=== PATIENT | male | born 1965 | race Caucasian/White ===

== ENCOUNTER → 2020-11-02 16:59 | Outpatient (BNVA) | payer OTHER, SELFPAY | PROVIDERS: Family Provider Emergency Medicine Emergency Medical Services; PCP Emergency Medicine Emergency Medical Services; Referring Provider Family Medicine; Visit Provider Nurse Practitioner | DX: Z20.828 Contact with and (suspected) exposure to other viral communicable diseases (principal) | CPT/HCPCS: 87635 ==

== ENCOUNTER → 2021-01-22 08:34 | Outpatient (BNVA) | payer OTHER, SELFPAY | PROVIDERS: Family Provider Emergency Medicine Emergency Medical Services; PCP Emergency Medicine Emergency Medical Services; Visit Provider Nurse Practitioner Family | DX: Z20.822 Contact with and (suspected) exposure to COVID-19 (principal) | CPT/HCPCS: 87635 ==

== ENCOUNTER → 2021-01-24 15:15 | Outpatient (BNVA) | payer OTHER, SELFPAY | PROVIDERS: Family Provider Emergency Medicine Emergency Medical Services; PCP Emergency Medicine Emergency Medical Services; Visit Provider Internal Medicine | DX: E11.9 Type 2 diabetes mellitus without complications (principal); I65.23 Occlusion and stenosis of bilateral carotid arteries | CPT/HCPCS: 99204 ==

== ENCOUNTER 2021-07-19 11:41 | Outpatient (CLI) | payer OTHER, SELFPAY ==
--- NOTE | 2021-07-19 13:30 | USCV_ITS ---
Mark Sen Age: 56 Gender: M : 1965 Exam Date: 07/19/2021 11:47 Ordering Phys: Josephine Lees MD ([email or web address]) Technologist: Exam Location: [facility] [place] Indication: cad Risk Factors: Previous Vascular Surgery: Right Brachial BP: / Left Brachial BP: / Right Left Velocity (cm/s) Spectral Plaque Velocity (cm/s) Spectral Plaque Syst/Diast Broadening Syst/Diast Broadening 63.90/ 13.20 Prox CCA / 46.70/ 7.20 Mid CCA 87.20 / 21.40 55.55/ 17.05 Distal CCA 45.30 / 11.10 65.10/ 24.30 Prox ICA 53.80 / 17.90 57.80/ 22.30 Mid ICA 54.70 / 20.50 / Distal ICA 61.50 / 20.50 58.50 ECA 67.50 1.02 ICA/CCA 0.71 Antegrade Vertebral Antegrade 36.20/ 9.20 cm/s 56.40/ 13.70 cm/s Subclavian 89.40 63.20 FINDINGS Minimal plaques at the bifurcations bilaterally Intimal thickening of the common carotid arteries bilaterally Antegrade flow in the vertebral arteries bilaterally CONCLUSIONS 1. Minimal plaques at the bifurcations bilaterally 2. No unstable lesions or significant stenosis, based on the above findings Dr Josephine Lees MD [facility] (Electronically Signed) Final Date: 19 July 2021 14:03 S
== END 2021-07-19 11:42 | disposition home or self-care (01) ==
LOC: CDL 11:43
PROVIDERS: PCP Emergency Medicine Emergency Medical Services; Visit Provider Internal Medicine Cardiovascular Disease
DX: I77.9 Disorder of arteries and arterioles, unspecified (principal); I65.23 Occlusion and stenosis of bilateral carotid arteries; I25.10 Atherosclerotic heart disease of native coronary artery without angina pectoris
CPT/HCPCS: 93880

== ENCOUNTER 2021-07-29 06:50 | Outpatient (CLI) | payer OTHER, SELFPAY ==
--- NOTE | 2021-07-29 07:01 | ECG_ITS ---
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 Interpretive Statements NAME OF STUDY: LEXISCAN SESTAMIBI STRESS TEST INDICATION: Shortness of Breath, PROCEDURE: At the baseline, the EKG revealed sinus rhythm with a left bundle branch block. The baseline blood pressure was 141/88 mm Hg with a heart rate of 85 beats/min. Lexiscan was infused over a period of 20 seconds. A total of 0.4 milligrams of Lexiscan was infused. The stress phase was continued for a total of 5 minutes. Heart rate at the end of the stress phase was 100 with a blood pressure 129/74. The EKG at the peak infusion revealed no significant changes. Sestamibi was injected 20 seconds after the Lexiscan infusion. Blood pressure at the end of the recovery phase was 135/71 with a heart rate of 98 per minute. CONCLUSION: 1. The EKG response to Lexiscan infusion is uninterpretable due to baseline changes no significant changes Shortness of Breath, 2. No LexiScan induced chest pain or cardiac arrhythmia 3. Normal blood pressure and heart rate response 4. Sestamibi/sestamibi perfusion scan pending; see separate report. Electronically Signed On 08-08-2021 8:00:20 CDT by Josephine Lees M.D. [id number]
--- NOTE | 2021-07-29 07:01 | NMCV_ITS ---
NM [place] perf SPECT r/s* [id number] Mark Sen Age: 56 Gender: M : 1965 Exam Date: 07/29/2021 08:03 Ordering Phys: Josephine Lees MD ([email or web address]) Technologist: TRACI Griffin Exam Location: [facility] Indications: SHORTNESS OF BREATH STRESS TEST Please see separate stress test report in [facility] for full findings IMAGE PROTOCOL Rest/Stress 1 Lexiscan Day Radiopharmaceutical Dose (mCi) Administration Site Administered by Rest: Tc-99m 10.8 IV TRACI Calero Sestamibi Stress:Tc-99m 32.9 IV TRACI Calero Sestamibi Rest: 29-Jul-2021 60 Discovery 630 Stress: 29-Jul-2021 30 Discovery 630 0.4mg Lexiscan. Supine position only as patient was unable to lay prone. SPECT RESULTS Technical Quality: Excellent Raw Data Analysis: Normal Image Corrections: No attenuation or motion correction applied Summed Stress Score: 0 Summed Rest Score: 0 Summed Difference Score: 0 PERFUSION FINDINGS Patchy areas of decreased tracer uptake were noted in the inferior wall and apical regions. No significant reversibility was noted. FUNCTIONAL RESULTS (calculated via Gated SPECT) Stress Image LV EF (%): 32 Stress EDV (mL):170 TID: 0.96 Stress ESV (mL):116 FUNCTIONAL FINDINGS: Segmental wall motion analysis revealed diffuse hypokinesis of the left ventricle with a somewhat dyskinetic septum IMPRESSIONS 1. Myocardial perfusion imaging revealing patchy areas of persistent decreased tracer uptake in the apical and inferior wall regions suggestive of myocardial scarring versus attenuation artifact. 2. Diminished LV ejection fraction 32%. 3. LV wall motion analysis revealing diffuse hypokinesia of the left ventricle with dyskinetic septum. 4. Moderately dilated LV cavity with an end-systolic volume of 160 ml. These features may suggest a nonischemic form of cardiomyopathy. No significant coronary ischemia, based on the above findings. No similar previous studies are available for comparison Dr Josephine Lees MD [facility] (Electronically Signed) Final Date: 29 July 2021 17:24 S
[2021-07-29 07:21] VITALS: BMI 35.2
[2021-07-29] MEDS: regadenoson 0.4 Mg/5 ml Syringe IVP (08:46)
[2021-07-29 09:09] VITALS: BP 133/71; PULSE 99
== END 2021-07-29 06:51 | disposition home or self-care (01) ==
PROVIDERS: PCP Emergency Medicine Emergency Medical Services; Visit Provider Internal Medicine Cardiovascular Disease
DX: R06.02 Shortness of breath (principal)
CPT/HCPCS: 78452; 93017; A9500; J2785

== ENCOUNTER → 2021-09-09 10:58 | Outpatient (BNVA) | payer OTHER, SELFPAY | PROVIDERS: Visit Provider Internal Medicine Cardiovascular Disease | DX: R06.02 Shortness of breath (principal); E78.5 Hyperlipidemia, unspecified; I42.9 Cardiomyopathy, unspecified | CPT/HCPCS: 80048; 83880 ==

== ENCOUNTER → 2021-09-30 09:10 | Outpatient (BNVA) | payer OTHER, SELFPAY | PROVIDERS: Visit Provider Internal Medicine Cardiovascular Disease | DX: R06.02 Shortness of breath (principal); E78.5 Hyperlipidemia, unspecified; I42.9 Cardiomyopathy, unspecified | CPT/HCPCS: 80048; 83880 ==

== ENCOUNTER 2024-09-27 10:31 | Outpatient (CLI) | payer OTHER, SELFPAY ==
--- NOTE | 2024-09-27 10:34 | USR_ITS ---
PROCEDURE INFORMATION: Exam: US Abdomen; Limited Exam date and time: 09/27/2024 10:51 AM Age: 59 years old Clinical indication: Abnormal findings; Abnormal lab test; Elevated liver enzymes TECHNIQUE: Imaging protocol: Real time ultrasound of the abdomen with image documentation. Limited exam focused on the region of clinical interest. COMPARISON: No relevant prior studies available. FINDINGS: Liver: The liver is diffusely hyperechoic consistent with fatty infiltration. However, cirrhosis or diffuse hepatocellular disease could have this appearance, as well. The liver is normal in size. No focal hepatic lesions. Pancreas: Portions of the pancreas are obscured by bowel gas. The visualized pancreas is unremarkable. Right kidney: 2.1 cm x 1.9 cm x 1.5 cm low-density lesion centrally in the right kidney is probably a cyst, but this is indeterminate. Otherwise, unremarkable right kidney measuring 10.8 cm in length. Intraperitoneal space: No ascites. Aorta: Unremarkable abdominal aorta. Inferior vena cava: Unremarkable IVC. Portal venous: Normal hepatopetal flow in the portal vein. US/US abdomen limited [id number] IMPRESSION: 1. 2.1 cm x 1.9 cm x 1.5 cm low-density lesion centrally in the right kidney is probably a cyst, but this is indeterminate. A follow-up ultrasound of this is recommended in 6 months. 2. The liver is diffusely hyperechoic consistent with fatty infiltration. However, cirrhosis or diffuse hepatocellular disease could have this appearance, as well. 3. Portions of the pancreas are obscured by bowel gas. 4. Otherwise, negative ultrasound of the right upper quadrant.
== END 2024-09-27 10:32 | disposition home or self-care (01) ==
LOC: RAD 10:32
PROVIDERS: PCP Family Medicine; Visit Provider Family Medicine
DX: K76.0 Fatty (change of) liver, not elsewhere classified (principal); R93.421 Abnormal radiologic findings on diagnostic imaging of right kidney
CPT/HCPCS: 76705

== ENCOUNTER 2024-11-09 07:47 | Outpatient (CLI) | payer OTHER, SELFPAY ==
--- NOTE | 2024-11-09 07:55 | US_ITS ---
WS: [id number] RENAL ULTRASOUND HISTORY: RIGHT RENAL CYST COMPARISON: 09/27/2024 TECHNIQUE: 2-D and color Doppler imaging of the kidney submitted. Right kidney: 10.3 cm x 5.9 cm x 5.7 cm. Cortex: 1.0 cm Normal size kidney. Ovoid cyst in the central renal pelvis is unchanged since prior examination. Cyst measures 18 x 6 mm. No hydronephrosis. Left kidney: 10.1 cm x 5.1 cm x 5.8 cm. Cortex: 1.0 cm Normal echogenicity with no hydronephrosis or mass. Aorta: Normal. Urinary Bladder: Normal distention. US/US renal BI* [id number] IMPRESSION: 1. No hydronephrosis or solid mass. 2. Parapelvic cyst central RIGHT renal pelvis measures 18 x 6 mm. No change si nce 09/27/2024.
--- NOTE | 2024-11-09 08:19 | USCV_ITS ---
SenMark Age: 59 Gender: M : 1965 Exam Date: 11/09/2024 08:25 Ordering Phys: Carline Ortiz MD Technologist: [facility] Exam Location: [facility] [place] Indication: stenosis Risk Factors: Previous Vascular Surgery: Right Brachial BP: / Left Brachial BP: / Right Left Velocity (cm/s) Spectral Plaque Velocity (cm/s) Spectral Plaque Syst/Diast Broadening Syst/Diast Broadening 60.10/ 10.60 Prox CCA 68.60 / 14.20 39.50/ 10.00 Mid CCA 55.80 / 12.90 54.20/ 13.70 Distal CCA 57.20 / 15.30 37.90/ 13.60 Prox ICA 30.80 / 10.40 60.80/ 24.10 Mid ICA 56.20 / 20.70 33.20/ 13.20 Distal ICA 55.30 / 18.60 43.00 ECA 41.20 0.70 ICA/CCA 0.50 Antegrade Vertebral Antegrade 39.50/ 6.60 cm/s 33.70/ 11.00 cm/s Bi Subclavian Bi 52.70 96.40 FINDINGS Comparison:. 07/19/21 No significant elevation of systolic or diastolic velocities. Waveforms are normal. Mild, bilateral scattered calcified plaque and intimal thickening throughout the common carotid arteries and extending through the bifurcation. Antegrade vertebral arteries. CONCLUSIONS Bilateral ICA stenosis less than 50%. Mild progression of atherosclerotic plaque. Dr. Naima Wilson DO (Electronically Signed) Final Date: 09 November 2024 12:02 S
== END 2024-11-09 07:48 | disposition home or self-care (01) ==
LOC: RAD 07:49
PROVIDERS: PCP Family Medicine; Visit Provider Family Medicine
DX: I65.23 Occlusion and stenosis of bilateral carotid arteries (principal); R93.89 Abnormal findings on diagnostic imaging of other specified body structures; N28.1 Cyst of kidney, acquired
CPT/HCPCS: 76770; 93880